=== PATIENT | female | born 1950 | race Caucasian/White ===

== ENCOUNTER 2019-06-10 20:37 | Inpatient (IN) | payer OTHER ==
[~2019-06-10] VITALS: Ht 165.1 cm; Wt 85.8 kg
[2019-06-10] MEDS ORDERED: ALBUTEROL SULF 2.5 MG/0.5ML(0.5%) NEB SOLN NEB STA (20:53)
[2019-06-10] MEDS ORDERED: IPRATROPIUM BROM 0.5 MG/2.5ML INH SOL NEB ONE (21:00)
[2019-06-10] MEDS ORDERED: FUROSEMIDE 20 MG/2 ML VIAL IV ONE (21:15)
[2019-06-10 21:22] LABS: Basophils # (auto) 0.2 uL; Basophils % (auto) 0.9 % (0.0-2.0); Eosinophils # (auto) 0.2 uL; Hematocrit 40.5 % (36.0-46.0); Hemoglobin 13.1 g/dL (12.2-16.2); Lymphocytes # (auto) 1.8 uL; Lymphocytes % (auto) 10.3 % (10.0-50.0); Mean Corpuscular Hemoglobin 30.7 pg (28.0-32.0); Mean Corpuscular Hgb Conc. 32.4 g/dL (32.0-36.0); Mean Corpuscular Volume 94.8 fL (80.0-100.0); Monocytes # (auto) 1.7 uL; Monocytes % (auto) 9.5 % (0.0-12.0); Neutrophils # (auto) 13.7 uL; Neutrophils % (auto) 78.3 % (37.0-80.0); Platelet Count (auto) 379 10^3/uL (140-450); Red Blood Cells 4.27 10^6/uL (4.0-5.20); White Blood Cell 17.5 10^3/uL (4.4-10.8)
[2019-06-10 21:40] LABS: Albumin 3.1 g/dL (3.4-5.0); BUN/Creatinine Ratio 25.4; Calcium 7.9 mg/dL (8.5-10.1); Potassium 3.9 mmol/L (3.5-5.1)
[2019-06-10 21:45] LABS: Bilirubin, Total 0.6 mg/dL (0.2-1.0); Total Protein 6.7 g/dL (6.4-8.2)
[2019-06-10 22:07] LABS: Urine Bacteria NONE SEEN /hpf (None Seen); Urine Blood Negative /uL (Negative); Urine Hyaline Cast MANY /lpf (0 - 2); Urine Mucus FEW (None Seen); Urine Specific Gravity 1.023 (1.001-1.035); Urine WBC 12 /hpf (0 - 5)
[2019-06-10 22:26] VITALS: BP 151/91
[2019-06-10 22:59] LABS: INR 1.06 (0.9-1.15); Partial Thromboplastin Time 25.4 sec (23.64-32.05)
[2019-06-10 23:10] LABS: Lactic Acid w/Reflex 2.2 mmol/L (0.4-2.0)
[2019-06-10] MEDS ORDERED: cefTRIAXone 1GM/50ML D5W 50 ML IV ONE (23:30)
[2019-06-11] VITALS (7 sets, daily range): BP systolic 113–141; BP diastolic 61–76
[2019-06-11] MEDS ORDERED: ACETAMINOPHEN 325 MG TAB PO PRN (01:00)
[2019-06-11] MEDS ORDERED: ONDANSETRON HCL 4 MG/2 ML VIAL IV PRN (01:00)
[2019-06-11] MEDS ORDERED: MORPHINE SULF INJ 2 MG/ML SYRINGE 1ML IV PRN (01:00)
[2019-06-11] MEDS ORDERED: TEMAZEPAM 15 MG CAP PO PRN (01:00)
[2019-06-11] MEDS ORDERED: NITROGLYCERIN 0.4 MG SL TAB SL PRN (01:00)
[2019-06-11] MEDS ORDERED: HYDROcodone-ACET 5/325MG TAB PO PRN (01:00)
--- NOTE | 2019-06-11 02:15 | NUR ---
Telemetry admit from ER PEGGY LOPEZY admitted to Telemetry unit after SBAR received. Patient oriented to primary RN, unit, room, bed, and unit policies regarding patient care and visiting hours. Patient now on continuous telemetry monitoring, tele box #81. Patient placed on bedside oxygen 3lpm, weighed by bedscale and encouraged to call if they need something. [place] intact, patent and draining to gravity with no s/s of mccullough or discomfort. All questions and concerns addressed, patient verbalized understanding. Bed locked in lowest position and bed rails up x2. Call light within reach.
--- NOTE | 2019-06-11 02:20 | NUR ---
Respiratory note: PT TAKEN OFF BIPAP AT THIS TIME, PT IS ALERT AND TALKING. PLACED PT ON 3L NC AND TRANSPORTED TO FLOOR. PT PRESENTING NO RESPIRATORY DISTRESS, TOLERATING NASAL CANNULA AT THIS TIME. LURE MAKER AND PT FAMILY AT BEDSIDE. BIPAP REMAINS AT BEDSIDE. PT AWARE TO NOTIFY RT IF BIPAP IS NEEDED. WILL CONTINUE TO MONITOR.
--- NOTE | 2019-06-11 02:20 | NUR ---
Son at bedside
[2019-06-11] MEDS ORDERED: APIX5TAB PO (05:58)
[2019-06-11] MEDS ORDERED: HYDR1TAB97 PO (05:58)
[2019-06-11] MEDS ORDERED: SOTA80TA PO (05:58)
[2019-06-11] MEDS ORDERED: DOXY-332 PO (05:58)
[2019-06-11] MEDS ORDERED: AMIO200T33 PO (05:58)
[2019-06-11] MEDS ORDERED: FUROSEMIDE 20 MG/2 ML VIAL IV SCH (06:00)
[2019-06-11] MEDS: ALBUTEROL SULF 2.5 MG/0.5ML(0.5%) NEB SOLN NEB SCH ×4 (06:03→23:33)
--- NOTE | 2019-06-11 07:30 | NUR ---
Opening Shift Note Assuming care of patient at this time. Patient is awake and alert. Patient denies pain. Patient shows no signs or symptoms of distress. Patient shows no signs or symptoms of shortness of breath. Instructed patient on the plan of care for today and to call for assistance as needed. Call light within reach. Will continue to round hourly and as needed.
[2019-06-11] MEDS: LEVOFLOXACIN 500MG 100 ML IV SCH (09:55)
[2019-06-11] MEDS: FAMOTIDINE 20 MG TAB PO SCH ×2 (09:59→21:32)
[2019-06-11] MEDS ORDERED: SOTALOL HCL 80 MG TAB PO SCH (10:00)
[2019-06-11] MEDS: AMIODARONE HCL 200 MG TAB PO SCH (10:00)
[2019-06-11] MEDS: APIXABAN 5 MG TAB PO SCH ×2 (10:03→21:31)
[2019-06-11] MEDS ORDERED: ALBUMIN 25% 50 ML IV ONE (14:00)
[2019-06-11] MEDS ORDERED: FUROSEMIDE 40 MG/4 ML VIAL IV ONE (14:00)
--- NOTE | 2019-06-11 18:26 | NUR ---
Re: Second Opinion Patient and son are requesting second opinion at this time. Family states that patient was never diagnosed with "CHF." They do not feel comfortable with Dr. Freitas's plan for discharge tomorrow. Son is requesting Dr. Blancas or Dr. Krause to see patient. Patient was just discharged two days ago and they did not feel comfortable with discharge at that time. Son states, "I do not want a repeat of what happened last time."
--- NOTE | 2019-06-11 18:46 | NUR ---
Discharge planning per consult, patient has orders for home health. Referral faxed to [facility] [phone]. Placed a follow up call, spoke with Carina and was advised they will accept this patient on discharge and start of care will be [id number]. [facility] case management coordinator Thao was here and called to the office to initiate and auth for services and advised they will send it to [facility] once it was created. If patient is medically cleared, she is okay to discharge. Addendum: 06/11/19 at 1850 by DOROTA PATEL Amended: Links added.
--- NOTE | 2019-06-11 19:30 | NUR ---
Opening Shift Note Assumed care of patient. Patient is awake, alert and resting comfortably with son at bedside. No S/S of distress/SOB or pain. Murcia intact, patent, draining to gravity with no s/s of pain or discomfort. Instructed on POC and to call for assist PRN, will continue to monitor for changes. Bed locked in lowest position and bed rails up x2. Call light within reach.
--- NOTE | 2019-06-11 19:37 | NUR ---
Closing Shift Note Patient resting in bed. Patient denies pain. Patient shows no signs or symptoms of distress or shortness of breath. Report given. Will endorse care to the tree shear operator RN.
[2019-06-11] MEDS: POTASSIUM CHL 20 Meq TABLET PO SCH (21:31)
--- NOTE | 2019-06-12 02:49 | NUR ---
3000ml of urine output so far
[2019-06-12 05:00] VITALS: BP 133/81
[2019-06-12 05:38] LABS: Basophils # (auto) 0.1 uL; Basophils % (auto) 0.9 % (0.0-2.0); Eosinophils # (auto) 0.1 uL; Eosinophils % (auto) 1.4 % (0.0-7.0); Hematocrit 34.2 % (36.0-46.0); Hemoglobin 11.6 g/dL (12.2-16.2); Lymphocytes # (auto) 1.5 uL; Lymphocytes % (auto) 15.4 % (10.0-50.0); Mean Corpuscular Hemoglobin 31.7 pg (28.0-32.0); Mean Corpuscular Hgb Conc. 33.8 g/dL (32.0-36.0); Monocytes # (auto) 1.2 uL; Monocytes % (auto) 12.4 % (0.0-12.0); Neutrophils # (auto) 6.7 uL; Neutrophils % (auto) 69.9 % (37.0-80.0); Platelet Count (auto) 282 10^3/uL (140-450); Red Blood Cells 3.64 10^6/uL (4.0-5.20); Red Cell Distribution Width 14.4 % (11.8-14.3); White Blood Cell 9.5 10^3/uL (4.4-10.8)
[2019-06-12 05:48] LABS: BUN/Creatinine Ratio 21.4; Calcium 7.7 mg/dL (8.5-10.1); Potassium 3.5 mmol/L (3.5-5.1)
[2019-06-12] MEDS: ALBUTEROL SULF 2.5 MG/0.5ML(0.5%) NEB SOLN NEB SCH ×3 (05:59→19:06)
[2019-06-12] MEDS ORDERED: FUROSEMIDE 40 MG/4 ML VIAL IV SCH (06:00)
--- NOTE | 2019-06-12 06:45 | NUR ---
Left AC 18G discontinued. IV site reddened with no s/s of pain
--- NOTE | 2019-06-12 08:15 | NUR ---
OPENING SHIFT NOTE: PATIENT AWAKE RESTING IN BED, EATING BREAKFAST. SON AT BEDSIDE. UPDATED ON PLAN OF CARE. PATIENT ADDRESSED SOME CONCERNS REGARDING DISCHARGE PLANNING. INFORMED PATIENT OF CARDIAC STATUS, AND ALL CARDIAC WORKUPS COMPLETED AT THIS TIME, MONITORING OUTPUT AT THIS TIME. INFORMED PATIENT OF PHYSICAL THERAPY PLANS TODAY TO GET OUT OF BED. PATIENT VERBALIZED UNDERSTANDING. GAVE PATIENT AM CARE, AND PLACED CALL LIGHT AND MORNING SUPPLIES WITHIN REACH. BED IN LOWEST LOCKED POSITION. WILL CONTINUE TO MONITOR.
--- NOTE | 2019-06-12 08:34 | NUR ---
SPOKE WITH MD VALLES. PLANS UPDATED FOR IN TOMORROW 06/13.
[2019-06-12 09:00] VITALS: BP 142/83
[2019-06-12] MEDS: APIXABAN 5 MG TAB PO SCH ×2 (10:56→21:40)
[2019-06-12] MEDS: FAMOTIDINE 20 MG TAB PO SCH ×2 (10:56→21:40)
[2019-06-12] MEDS: LISINOPRIL 5 MG TAB PO SCH (10:56)
[2019-06-12] MEDS: AMIODARONE HCL 200 MG TAB PO SCH (10:57)
[2019-06-12] MEDS: POTASSIUM CHL 20 Meq TABLET PO SCH ×2 (10:57→21:40)
[2019-06-12] MEDS: LEVOFLOXACIN 500MG 100 ML IV SCH (10:57)
--- NOTE | 2019-06-12 12:37 | NUR ---
PATIENT AMBULATING IN THE UNIT WITH PHYSICAL THERAPY. TOLERATING WELL.
[2019-06-12 13:00] VITALS: BP 101/49
[2019-06-12 17:00] VITALS: BP 124/63
[2019-06-12] MEDS: FUROSEMIDE 20 MG TAB PO SCH (18:56)
--- NOTE | 2019-06-12 18:56 | NUR ---
CLOSING SHIFT NOTE: PATIENT RESTING IN BED, FAMILY AT BEDSIDE. BED IN LOWEST LOCKED POSITION. RESPIRATIONS EVEN AND UNLABORED. WILL ENDORSE CARE TO NOC RN.
--- NOTE | 2019-06-12 19:18 | NUR ---
CARE ENDORSED TO NALLELY MORRIS.
--- NOTE | 2019-06-12 19:30 | NUR ---
Opening Shift Note Assumed care of patient, awake, AAOx4. No S/S of distress/SOB or pain. On bedrest, varela catheter patent and draining to gravity. Bed in lowest locked position, side rails up x2, call light within reach. Instructed on POC and to call for assist PRN, will continue to monitor for changes Q1hr and PRN.
[2019-06-12 20:00] VITALS: BP 114/57
[2019-06-12 22:04] VITALS: BP 114/57
[2019-06-13] MEDS: ALBUTEROL SULF 2.5 MG/0.5ML(0.5%) NEB SOLN NEB SCH ×3 (00:09→14:20)
[2019-06-13 05:11] VITALS: BP 111/63
[2019-06-13] MEDS: FUROSEMIDE 20 MG TAB PO SCH (05:35)
[2019-06-13 05:47] LABS: BUN/Creatinine Ratio 21.7; Calcium 7.8 mg/dL (8.5-10.1); Potassium 3.7 mmol/L (3.5-5.1)
--- NOTE | 2019-06-13 07:34 | NUR ---
OPENING SHIFT NOTE: PATIENT ASLEEP, RESTING IN BED. RESPIRATIONS EVEN AND UNLABORED. HORTON HUNG BELOW BLADDER, FREE OF KINKS. BED IS IN LOWEST LOCKED POSITION. FLOORS FREE OF CLUTTER. CALL LIGHT WITHIN REACH. UPDATED CARE BOARD, WILL CONTINUE TO MONITOR.
[2019-06-13 09:00] VITALS: BP 113/81
[2019-06-13] MEDS: LEVOFLOXACIN 500MG 100 ML IV SCH (11:02)
[2019-06-13] MEDS: POTASSIUM CHL 20 Meq TABLET PO SCH (11:02)
[2019-06-13] MEDS: AMIODARONE HCL 200 MG TAB PO SCH (11:03)
[2019-06-13] MEDS: LISINOPRIL 5 MG TAB PO SCH (11:04)
[2019-06-13] MEDS: FAMOTIDINE 20 MG TAB PO SCH (11:04)
[2019-06-13] MEDS: APIXABAN 5 MG TAB PO SCH (11:04)
--- NOTE | 2019-06-13 11:32 | NUR ---
CALL FROM MD VALLES: PATIENT CLEARED FOR DISCHARGE. TO ARRANGE [facility] RN TOMORROW.
--- NOTE | 2019-06-13 11:40 | NUR ---
PATIENT AMBULATING IN UNIT WITH PHYSICAL THERAPY.
--- NOTE | 2019-06-13 12:19 | NUR ---
HORTON REMOVED. CATHETER INTACT. 100CC OF WATER ASPIRATED OUT OF BALLOON. 200ML PALE YELLOW URINE IN BAG. EDUCATED PATIENT TO CALL FOR ASSISTANCE ON FIRST VOID.
[2019-06-13 12:37] VITALS: BP 116/69
--- NOTE | 2019-06-13 12:49 | NUR ---
Respiratory note: RT at bedside for scheduled 1200 medneb tx. Pt requests to take tx later, needs to use commode at this time. No s/s of respiratory distress. Will return at a later time.
--- NOTE | 2019-06-13 14:20 | NUR ---
Respiratory note: Medneb tx given, pt tolerated well, no adverse reactions noted. Placed pt back on 2L NC, POX 98%. No s/s of respiratory distress. Pt's family at bedside. Will continue to monitor.
[2019-06-13 16:27] VITALS: BP 139/71
--- NOTE | 2019-06-13 16:28 | NUR ---
PATIENT DISCHARGED: PATIENT GIVEN ALL EDUCATION MATERIALS. PATIENT ENCOURAGED TO KEEP BOTH FOLLOW UP APPOINTMENTS FOR FRIDAY THE June WITH PCP AND PAPER MAKING MACHINE OPERATOR. IV REMOVED, CATHETER INTACT. TELE BOX CLEANED AND RETURNED TO CARDIO UNIT. PATIENT TAKEN DOWN TO PRIVATE AUTO VIA WHEELCHAIR WITH ALL BELONGINGS AND WITHOUT INCIDENCE. RESPIRATIONS EVEN AND UNLABORED, PERSONAL OXYGEN TANK BROUGHT BY SON.
[2019-06-13] MEDS ORDERED: FUROSEMIDE 20 MG/2 ML VIAL IV SCH (18:00)
== END 2019-06-13 16:23 | disposition home health service (06) | DRG 291 ==
LOC: ER 20:39 → TELE 20:40 → TELE-WESTW 06-11 02:13
PROVIDERS: ADMIT Nurse Practitioner; ATTEND Hospitalist
PROC: 5A09357 Assistance with Respiratory Ventilation, Less than 24 Consecutive Hours, Continuous Positive Airway Pressure (ICD-10-PCS; principal; 2019-06-10)
DX: I50.43 Acute on chronic combined systolic (congestive) and diastolic (congestive) heart failure (principal); J96.01 Acute respiratory failure with hypoxia; J98.11 Atelectasis; I42.0 Dilated cardiomyopathy; E11.65 Type 2 diabetes mellitus with hyperglycemia; D72.829 Elevated white blood cell count, unspecified; E66.9 Obesity, unspecified; Z95.810 Presence of automatic (implantable) cardiac defibrillator; I48.91 Unspecified atrial fibrillation; Z68.31 Body mass index [BMI] 31.0-31.9, adult
CPT/HCPCS: 36415; 36600; 71045; 80048; 80053; 81001; 82805; 83036; 83605; 83880; 84484; 85025; 85610; 85730; 87040; 87081; 93005; 93306; 94640; 94660; 94761; 96365; 96367; 96375; 97110; 97116; 97530; G0378; J0696; J1956